=== PATIENT | male | born 1945 | race Caucasian/White ===

== ENCOUNTER 2020-11-08 21:46 | Inpatient (IN) | payer MEDICARE ==
[~2020-11-08] VITALS: Ht 175.3 cm; Wt 101.4 kg
[2020-11-08 23:37] LABS: RED BLOOD COUNT 2.47 M/UL (4.20-5.50); WHITE BLOOD COUNT 15.3 K/UL (4.5-11.0)
[2020-11-08 23:56] LABS: HEMOGLOBIN 6.2 gm/dl (14.0-17.5)
[2020-11-09] MEDS ORDERED: UROXATRAL 10 MG10 MG PO (00:15)
[2020-11-09] MEDS ORDERED: AMLODIPINE BESY10 MG PO (00:16)
[2020-11-09] MEDS ORDERED: ATORVASTATIN CA40 MG PO (00:16)
[2020-11-09] MEDS ORDERED: ZESTRIL 40 MG T40 MG PO (00:17)
[2020-11-09] MEDS ORDERED: VOLTAREN EC 7575 MG PO (00:17)
[2020-11-09] MEDS ORDERED: VITAMIN D325 MCG PO (00:18)
[2020-11-09] MEDS ORDERED: ALLOPURINOL100 MG PO (00:18)
[2020-11-09] MEDS ORDERED: OMEPRAZOLE20 MG PO (00:19)
[2020-11-09] MEDS ORDERED: FORTAMET500 MG PO (00:19)
[2020-11-09] MEDS ORDERED: CARVEDILOL12.5 MG PO (00:20)
[2020-11-09] MEDS ORDERED: GABAPENTIN800 MG PO (00:20)
[2020-11-09] MEDS ORDERED: TRAMADOL HCL50 MG PO (00:21)
[2020-11-09] MEDS ORDERED: ARTIFICIAL TEA1 EACH OP (00:22)
[2020-11-09 07:19] LABS: RED BLOOD COUNT 2.67 M/UL (4.20-5.50); WHITE BLOOD COUNT 12.2 K/UL (4.5-11.0)
[2020-11-09 07:56] LABS: HEMOGLOBIN 6.9 gm/dl (14.0-17.5)
[2020-11-09 17:03] LABS: HEMOGLOBIN 8.4 gm/dl (14.0-17.5)
[2020-11-10 02:57] LABS: HEMOGLOBIN 8.5 gm/dl (14.0-17.5); RED BLOOD COUNT 3.4 M/UL (4.20-5.50)
[2020-11-10 14:46] LABS: HEMOGLOBIN 8.2 gm/dl (14.0-17.5)
[2020-11-11 02:46] LABS: HEMOGLOBIN 8.7 gm/dl (14.0-17.5); RED BLOOD COUNT 3.38 M/UL (4.20-5.50); WHITE BLOOD COUNT 11.1 K/UL (4.5-11.0)
[2020-11-12 04:13] LABS: HEMOGLOBIN 8.2 gm/dl (14.0-17.5); RED BLOOD COUNT 3.17 M/UL (4.20-5.50); WHITE BLOOD COUNT 10.8 K/UL (4.5-11.0)
[2020-11-13 02:23] LABS: HEMOGLOBIN 8.2 gm/dl (14.0-17.5); RED BLOOD COUNT 3.2 M/UL (4.20-5.50)
[2020-11-13] MEDS ORDERED: GABAPENTIN100 MG PO ×2 (12:14→12:16)
[2020-11-13] MEDS ORDERED: LEVOFLOXACIN750 MG PO (12:21)
[2020-11-13 16:14] LABS: HEMATOCRIT 25.6 % (37.5-51.0)
== END 2020-11-13 17:38 | disposition home or self-care (01) | DRG 682 ==
LOC: PROG CARE 21:46
PROVIDERS: Family Medicine; Internal Medicine; Internal Medicine Hematology & Oncology; Internal Medicine Nephrology; ADMIT Internal Medicine
PROC: 30233N1 Transfusion of Nonautologous Red Blood Cells into Peripheral Vein, Percutaneous Approach (ICD-10-PCS; principal; 2020-11-09)
DX: N17.9 Acute kidney failure, unspecified (principal); R53.2 Functional quadriplegia; C64.2 Malignant neoplasm of left kidney, except renal pelvis; D62 Acute posthemorrhagic anemia; N39.0 Urinary tract infection, site not specified; G47.33 Obstructive sleep apnea (adult) (pediatric); N18.9 Chronic kidney disease, unspecified; D63.0 Anemia in neoplastic disease; N13.30 Unspecified hydronephrosis; Z85.46 Personal history of malignant neoplasm of prostate; L89.152 Pressure ulcer of sacral region, stage 2; E11.22 Type 2 diabetes mellitus with diabetic chronic kidney disease; I12.9 Hypertensive chronic kidney disease with stage 1 through stage 4 chronic kidney disease, or unspecified chronic kidney disease; E87.5 Hyperkalemia; Z86.16 Personal history of COVID-19; Z80.51 Family history of malignant neoplasm of kidney; Z87.891 Personal history of nicotine dependence
CPT/HCPCS: 36415; 36430; 71045; 80048; 80053; 81001; 82550; 82553; 82570; 82607; 82728; 82747; 82962; 83540; 83550; 83605; 83615; 83921; 84153; 84300; 85014; 85018; 85025; 85045; 85610; 85730; 86850; 86900; 86901; 86920; 89050; 94760; 97162; 97166; 97530-GP-CQ; A6212; C9113; J1644; J1940; J1956; J7030; J7050; P9016

== ENCOUNTER 2020-11-19 17:00 | Emergency (ER) | payer MEDICARE, OTHER ==
[~2020-11-19 17:00] MED LIST: ALLOPURINOL100 MG PO; AMLODIPINE BESY10 MG PO; ARTIFICIAL TEA1 EACH OP; ATORVASTATIN CA40 MG PO; CARVEDILOL12.5 MG PO; FORTAMET500 MG PO; GABAPENTIN100 MG PO; GABAPENTIN800 MG PO; LEVOFLOXACIN750 MG PO; OMEPRAZOLE20 MG PO; TRAMADOL HCL50 MG PO; UROXATRAL 10 MG10 MG PO; VITAMIN D325 MCG PO; VOLTAREN EC 7575 MG PO; ZESTRIL 40 MG T40 MG PO
[2020-11-19 19:01] LABS: HEMOGLOBIN 8.2 gm/dl (14.0-17.5); RED BLOOD COUNT 3.12 M/UL (4.20-5.50); WHITE BLOOD COUNT 9.4 K/UL (4.5-11.0)
== END 2020-11-19 21:45 | disposition home or self-care (01) ==
LOC: ER1 17:00
PROVIDERS: Emergency Medicine
DX: N28.89 Other specified disorders of kidney and ureter (principal); E11.9 Type 2 diabetes mellitus without complications; I10 Essential (primary) hypertension; Z85.46 Personal history of malignant neoplasm of prostate; Z88.0 Allergy status to penicillin
CPT/HCPCS: 80053; 81001; 83690; 85025; 99283